=== PATIENT | male | born 1990 | race Caucasian/White ===

== ENCOUNTER 2022-05-10 05:33 | Emergency (ER) | payer BC ==
[2022-05-10] MEDS ORDERED: Sulfameth/Trimethoprim DS 800-160mg TAB ONE (06:43)
[2022-05-10] MEDS ORDERED: Cephalexin 500 MG CAP ONE (06:43)
== END 2022-05-10 06:50 | disposition home or self-care (01) ==
LOC: MADERS 05:33
DX: L03.811 Cellulitis of head [any part, except face] (principal)
CPT/HCPCS: 99283

== ENCOUNTER 2022-05-11 19:02 | Emergency (ER) | payer BC | END 2022-05-11 20:15 | disposition home or self-care (01) | LOC: MADERS 19:02 | DX: L03.221 Cellulitis of neck (principal); F17.290 Nicotine dependence, other tobacco product, uncomplicated | CPT/HCPCS: 99283 ==

== ENCOUNTER 2023-10-24 09:10 | Emergency (ER) | payer BC ==
[2023-10-24] MEDS ORDERED: Orphenadrine Citrate 60 MG/2 ML VIAL ONE (09:42)
[2023-10-24] MEDS ORDERED: Dexamethasone 10 MG/ML VIAL ONE (09:42)
[2023-10-24] MEDS ORDERED: Ketorolac Tromethamine 30 MG (1 mL) VIAL ONE (09:43)
== END 2023-10-24 10:02 | disposition home or self-care (01) ==
LOC: MADERS 09:10
DX: M54.50 Low back pain, unspecified (principal); F17.210 Nicotine dependence, cigarettes, uncomplicated; F17.290 Nicotine dependence, other tobacco product, uncomplicated
CPT/HCPCS: 96372; 99283; J1100; J1885; J2360